=== PATIENT | female | born 1960 | race Caucasian/White ===

== ENCOUNTER 2018-04-26 11:34 | Day surgery (SDC) | payer BC, OTHER ==
[~2018-04-26] VITALS: Ht 160 cm; Wt 79.7 kg
[~2018-04-26 11:34] MED LIST: ACET325T14 PO; AMLO10TA6 PO; HYDR-3237 PO; LEVO75TA5 PO; LOSA1TAB25 PO; OMEP-110 PO
[2018-04-26] MEDS ORDERED: LACTATED RINGERS 1,000 ML IV SCH (12:09)
[2018-04-26] MEDS ORDERED: LEVO125T5 PO (12:12)
[2018-04-26] MEDS ORDERED: AMLO2.5T3 PO (12:12)
[2018-04-26 12:35] VITALS: BP 134/96
[2018-04-26] MEDS ORDERED: PROPOFOL 10 MG/ML, 50ML ONE (13:55)
[2018-04-26] MEDS ORDERED: OXYMETAZOLINE NASAL SPRAY 0.05%, 15ML ONE (14:51)
[2018-04-26] MEDS ORDERED: FENTANYL PF 100 MCG/2ML ONE (14:58)
[2018-04-26] MEDS ORDERED: hydrALAzine 20 MG/ML, 1ML IV PRN (15:00)
[2018-04-26] MEDS ORDERED: LABETALOL 5MG/ML, 20ML IV PRN (15:00)
[2018-04-26] MEDS ORDERED: ONDANSETRON 2MG/ML, 2ML IV PRN (15:00)
[2018-04-26] MEDS: FENTANYL PF 100 MCG/2ML IV PRN ×2 (15:00→15:23)
[2018-04-26] MEDS ORDERED: hydrALAzine 20 MG/ML, 1ML ONE (15:07)
== END 2018-04-26 16:45 | disposition home or self-care (01) ==
LOC: OUT 11:34
PROVIDERS: ATTEND Internal Medicine
DX: C25.1 Malignant neoplasm of body of pancreas (principal); I10 Essential (primary) hypertension; E03.9 Hypothyroidism, unspecified; K21.9 Gastro-esophageal reflux disease without esophagitis; Z88.8 Allergy status to other drugs, medicaments and biological substances
CPT/HCPCS: 43238; 88172; 88173; 88177; 88307; 93005; J0360; J2704; J3010; J7120

== ENCOUNTER 2018-12-26 07:39 | Day surgery (SDC) | payer BC ==
[~2018-12-26] VITALS: Ht 157.5 cm; Wt 59.0 kg
[~2018-12-26 07:39] MED LIST changes: -AMLO10TA6 PO; +AMLO10TA8 PO; +AMLO2.5T5 PO; +LEVO125T5 PO
[2018-12-26] MEDS ORDERED: SODIUM CHLORIDE 0.9% 1,000 ML IV SCH (08:13)
[2018-12-26 08:38] VITALS: BP 144/91
[2018-12-26] MEDS ORDERED: SENN1TAB67 PO (08:38)
[2018-12-26] MEDS ORDERED: VIT-5 PO (08:38)
[2018-12-26] MEDS ORDERED: HYDR-36 PO (08:38)
[2018-12-26] MEDS ORDERED: CHOL100012 PO (08:38)
[2018-12-26] MEDS ORDERED: MAGN250T8 PO (08:38)
[2018-12-26] MEDS ORDERED: POLY17PO5 PO (08:38)
[2018-12-26] MEDS ORDERED: OMEP20TA62 PO (08:38)
[2018-12-26] MEDS ORDERED: PROC10TA78 PO (08:38)
[2018-12-26] MEDS ORDERED: ONDA4TAB7 PO (08:38)
[2018-12-26] MEDS ORDERED: LEVO125T5 PO (08:38)
[2018-12-26 09:08] LABS: INTERNATIONAL NORMALIZED RATIO 1.02 (0.93-1.1); PROTHROMBIN TIME 10.7 Seconds (9.6-11.5)
[2018-12-26] MEDS ORDERED: FENTANYL PF 100 MCG/2ML ONE (09:35)
[2018-12-26] MEDS ORDERED: FLUMAZENIL 0.1 MG/1 ML, 5ML ONE (09:35)
[2018-12-26] MEDS ORDERED: NALOXONE 1 MG/ML, 2ML ONE (09:35)
[2018-12-26] MEDS ORDERED: MIDAZOLAM 1 MG/ML, 5ML ONE (09:35)
== END 2018-12-26 12:30 | disposition home or self-care (01) ==
LOC: OUT 07:39
PROVIDERS: ATTEND Internal Medicine Hematology & Oncology
DX: C78.7 Secondary malignant neoplasm of liver and intrahepatic bile duct (principal); C25.0 Malignant neoplasm of head of pancreas; I10 Essential (primary) hypertension; E78.5 Hyperlipidemia, unspecified; E03.9 Hypothyroidism, unspecified; Z79.890 Hormone replacement therapy; Z79.891 Long term (current) use of opiate analgesic; Z79.899 Other long term (current) drug therapy; Z87.891 Personal history of nicotine dependence; Z88.8 Allergy status to other drugs, medicaments and biological substances; Z90.710 Acquired absence of both cervix and uterus; Z80.1 Family history of malignant neoplasm of trachea, bronchus and lung
CPT/HCPCS: 36415; 47000; 77012; 85610; 88307; 99156; 99157; J2250; J3010; J7030; J2310